=== PATIENT | female | born 1990 | race Caucasian/White ===

== ENCOUNTER 2018-03-02 22:53 | Emergency (ER) | payer OTHER ==
[2018-03-02 23:03] VITALS: BP 148/82
[2018-03-02] MEDS ORDERED: CEPHALEXIN 500MG PREPACK#4 BTL TAKEHOME ONE ×2 (23:10→23:15)
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
[2018-03-02] MEDS ORDERED: CEPHALEXIN 500 MG CAP PO ONE (23:15)
== END 2018-03-02 23:24 | disposition home or self-care (01) ==
DX: L08.9 Local infection of the skin and subcutaneous tissue, unspecified (principal); T24.231A Burn of second degree of right lower leg, initial encounter; X19.XXXA Contact with other heat and hot substances, initial encounter; Y99.8 Other external cause status